=== PATIENT | female | born 1955 | race Caucasian/White ===

== ENCOUNTER 2018-02-12 11:05 | Outpatient (CLI) | payer OTHER | END 2018-02-12 11:06 | disposition home or self-care (01) | LOC: CTENTCT 11:05 | PROVIDERS: ATTEND Specialist | DX: R51 Headache (principal) | CPT/HCPCS: 70486 ==

== ENCOUNTER 2022-09-03 08:55 | Outpatient (CLI) | payer OTHER ==
[2022-09-03] MEDS ORDERED: Iopamidol 370 76% 100 ML VIAL ONE (09:39)
== END 2022-09-03 08:56 | disposition home or self-care (01) ==
LOC: CT 08:55
PROVIDERS: ATTEND Plastic Surgery
DX: K43.2 Incisional hernia without obstruction or gangrene (principal)
CPT/HCPCS: 74170; 82565